=== PATIENT | male | born 1955 | race Caucasian/White ===

== ENCOUNTER 2017-02-24 07:02 | Inpatient (IN) | payer OTHER ==
[2017-02-24 07:21] VITALS: BMI 24.4
--- NOTE | 2017-02-24 07:39 | C.PDOC ---
History Of Present Illness 61 year old male with a PMHx of herniated discs and chronic back pain presents to the ED with complaints of black stool, with last episode one hour prior to arrival. Patient reports nausea, vomiting, diarrhea, and mid-abdominal pain beginning yesterday with two episodes of black stool today. Patient took one dose of Dexamethasone for pain, with no relief. Patient denies similar episodes of bloody stool in the past, fever, chills, or other complaints at this time Informatics Coordinator used: Neris Krishnan PMD: Dr. Watson Time Seen by Provider: 02/24/17 07:20 Chief Complaint (Nursing): GI Problem History Per: Patient, Informatics Coordinator (Neris Smith [id number]) History/Exam Limitations: language barrier (Hebrew speaking) Onset/Duration Of Symptoms: Days (2 days), Worse Since (1 hour RELIEF CAPTAIN) Current Symptoms Are (Timing): Still Present Number Of Bleeding Episodes: Multiple: (2) Quality Of Discomfort: "Pain" Associated Symptoms: Nausea, Vomiting, Diarrhea, Melena. denies: Lightheadedness Recent travel outside of the [place]: No Past Medical History Reviewed: Historical Data, Nursing Documentation, Vital Signs Vital Signs: Last Vital Signs Temp 97.7 F 02/24/17 15:00 Pulse 70 02/24/17 15:00 Resp 20 02/24/17 15:00 BP 127/70 02/24/17 15:00 Pulse Ox 98 02/24/17 15:00 - Medical History PMH: Back Problems (PT STATES "PROBLEM WITH MY 4TH AND 5TH VERTEBRAE") Surgical History: No Surg Hx Family History: States: Unknown Family Hx - Social History Hx Alcohol Use: No Hx Substance Use: No - Immunization History Hx Tetanus Toxoid Vaccination: No Hx Influenza Vaccination: No Hx Pneumococcal Vaccination: No Review Of Systems Constitutional: Negative for: Fever, Chills Cardiovascular: Negative for: Chest Pain, Palpitations Respiratory: Negative for: Cough, Shortness of Breath Gastrointestinal: Positive for: Nausea, Vomiting, Abdominal Pain, Diarrhea, Melena. Negative for: Rectal Pain Physical Exam - Physical Exam Appears: Non-toxic, No Acute Distress Skin: Warm, Dry, No Rash Head: Atraumatic, Normacephalic, No Tenderness Eye(s): bilateral: Normal Inspection, PERRL, EOMI Oral Mucosa: Moist Neck: Supple Chest: Symmetrical, No Deformity Cardiovascular: Rhythm Regular, No Murmur Respiratory: No Rales, No Rhonchi, No Wheezing, Other (clear to auscultation bilaterally ) Gastrointestinal/Abdominal: Soft, No Tenderness, No Distention, No Guarding, No Rebound Rectal: Heme Positive, Maroon Stool, No Hemorrhoids Extremity: Normal ROM, No Tenderness Neurological/Psych: Oriented x3, Normal Speech ED Course And Treatment - Laboratory Results Result Diagrams: 02/24/17 07:49 02/24/17 07:49 Lab Interpretation: No Acute Changes O2 Sat by Pulse Oximetry: 100 (RA) Pulse Ox Interpretation: Normal - CT Scan/US Abdomen Pelvis CT Other Rad Studies (CT/US): Read By Radiologist, Radiology Report Reviewed CT/US Interpretation: FINDINGS: LOWER THORAX: Unremarkable. LIVER: Gallstone pancreatitis renal glands renal stone. GALLBLADDER AND BILE DUCTS: Unremarkable. PANCREAS: Unremarkable. No gross lesion or ductal dilatation. SPLEEN: Unremarkable. ADRENALS: Unremarkable. No mass. KIDNEYS AND URETERS: Unremarkable. No hydronephrosis. No solid mass. VASCULATURE: Unremarkable. No aortic aneurysm. BOWEL: There is circumferential mural thickening of the transverse colon and proximal descending colon consistent with nonspecific colitis. Consider infectious etiology such as C difficile. APPENDIX: Not visualized. PERITONEUM: Unremarkable. No free fluid. No free air. LYMPH NODES : Unremarkable. No enlarged lymph nodes. BLADDER: Suboptimally distended. Mild mural thickening. No perivesical edema. Nevertheless, please correlate for possible cystitis. REPRODUCTIVE: Normal prostate. Incidental bilateral hydrocele noted. Nonspecific. BONES: No acute fracture. OTHER FINDINGS: None. IMPRESSION: Possible infectious or inflammatory colitis involving the transverse and proximal descending colon. Mild mural thickening of the bladder although bladder is suboptimally distended for evaluation. Please correlate for possible cystitis. Mild bilateral hydrocele, nonspecific. The remainder of the examination is unremarkable. Progress Note: Abdomen & Pelvis CT, blood work, and labs were ordered. Patient was given Protonix and Lactated Ringer's IV. Medical Decision Making Medical Decision Making: Impression: GI bleed Plan: * Labs * Occult stool * CT A/P * IV fluids, protonix Progress: Discussed case with attending who agreed with plan Labs reviewed normal H/H and no electrolyte imbalance. CT scan showed colitis. Will treat with IV Flagyl and Cipro. Contact PCP Dr Watson to discuss case and admit for colitis with melena. Patient remained alert and oriented, afebrile with stable vital signs. Disposition - Disposition Disposition: HOSPITALIZED Disposition Time: 11:05 Condition: STABLE - POA Present On Arrival: None - Clinical Impression Clinical Impression: Colitis, acute - PA / ORANGE PICKER / Resident Statement MD/DO has reviewed & agrees with the documentation as recorded. - Scribe Statement The provider has reviewed the documentation as recorded by the Scribe Marisa Lopez All medical record entries made by the Scribe were at my direction and personally dictated by me. I have reviewed the chart and agree that the record accurately reflects my personal performance of the history, physical exam, medical decision making, and the department course for this patient. I have also personally directed, reviewed, and agree with the discharge instructions and disposition. Decision To Admit - Pt Status Changed To: Hospital Disposition Of: Inpatient - Admit Certification Admit to Inpatient:: After my assessment, the patient will require hospitalization for at least two midnights. This is because of the severity of symptoms shown, intensity of services needed, and/or the medical risk in this patient being treated as an outpatient. - InPatient: Physician Admission Certification: I certify that this patient requires 2 or more midnights of care for the following reason:: Patient with acute colitis and dark bloody stools. Will need IV antibiotics and GI consult - . Bed Request Type: Regular Admitting Physician: Nadia Watson Patient Diagnosis: Colitis, acute
[2017-02-24] MEDS ORDERED: Lactated Ringer's 1,000 ML IV STA (07:42)
[2017-02-24] MEDS ORDERED: Lactated Ringer's 1,000 ML ONE (07:55)
[2017-02-24 07:59] LABS: BASO % 0.5 % (0.0-2.0); EOS # 0.2 K/uL (0.0-0.7); EOS % 2.6 % (0.0-4.0); HEMATOCRIT 35.6 % (35.0-51.0); LYMPH # 2.8 K/uL (1.0-4.3); LYMPH % 37.7 % (20.0-40.0); MEAN CELL VOLUME 86.1 fL (80.0-94.0); MEAN CORPUSCULAR HEMOGLOBIN 29.8 pg (27.0-31.0); MEAN CORPUSCULAR HGB CONC 34.6 g/dL (33.0-37.0); MEAN PLATELET VOLUME 7.9 fL (7.2-11.7); MONO # 0.5 K/uL (0.0-0.8); MONO % 7.1 % (0.0-10.0); NRBC % 0.1 % (0.0-2.0); RED CELL DISTRIBUTION WIDTH 13.7 % (11.5-14.5); WHITE BLOOD COUNT 7.4 K/uL (4.8-10.8)
[2017-02-24 08:13] LABS: ALB/GLOB RATIO 1.1 (1.0-2.1); ALKALINE PHOSPHATASE 36 U/L (38-126); ALT/SGPT 34 U/L (21-72); AST/SGOT 27 U/L (17-59); BILIRUBIN,TOTAL 0.5 mg/dL (0.2-1.3); BLOOD UREA NITROGEN 36 mg/dL (9-20); CARBON DIOXIDE 28 mmol/L (22-30); CHLORIDE 104 mmol/L (98-107); GFR AFRICAN-AMERICAN > 60; GLUCOSE,RANDOM 105 mg/dL (75-110); POTASSIUM 3.7 mmol/L (3.6-5.2); SODIUM 139 mmol/L (132-148); TOTAL PROTEIN 6.8 g/dL (6.3-8.3)
[2017-02-24 08:15] LABS: INR 1.1
[2017-02-24 08:19] LABS: RBC URINE 2 /hpf (0-3); URINE BACTERIA RARE (<OCC); URINE BILIRUBIN NEGATIVE (NEGATIVE); URINE BLOOD NEGATIVE (NEGATIVE); URINE COLOR Yellow (YELLOW); URINE GLUCOSE (UA) NORMAL (Normal); URINE KETONE NEGATIVE (NEGATIVE); URINE LEUKOCYTE ESTERASE NEG Leu/uL (Negative); URINE PROTEIN NEGATIVE (NEGATIVE); URINE UROBILINOGEN NORMAL mg/dL (0.2-1.0); WBC URINE 2 /hpf (0-5)
[2017-02-24] MEDS ORDERED: Iodixanol 320 MG/ML 100 ML BOTTLE IV ONE (08:38)
--- NOTE | 2017-02-24 10:56 | CT ---
PROCEDURE: CT Abdomen and Pelvis with contrast HISTORY: GI bleed COMPARISON: None. TECHNIQUE: Contrast dose: 100 mL Visipaque 320 Radiation dose: Total exam DLP = 983.24 mGy-cm. This CT exam was performed using one or more of the following dose reduction techniques: Automated exposure control, adjustment of the mA and/or kV according to patient size, and/or use of iterative reconstruction technique. FINDINGS: LOWER THORAX: Unremarkable. LIVER: Gallstone pancreatitis renal glands renal stone GALLBLADDER AND BILE DUCTS: Unremarkable. PANCREAS: Unremarkable. No gross lesion or ductal dilatation. SPLEEN: Unremarkable. ADRENALS: Unremarkable. No mass. KIDNEYS AND URETERS: Unremarkable. No hydronephrosis. No solid mass. VASCULATURE: Unremarkable. No aortic aneurysm. BOWEL: There is circumferential mural thickening of the transverse colon and proximal descending colon consistent with nonspecific colitis. Consider infectious etiology such as C difficile. APPENDIX: Not visualized PERITONEUM: Unremarkable. No free fluid. No free air. LYMPH NODES: Unremarkable. No enlarged lymph nodes. BLADDER: Suboptimally distended. Mild mural thickening. No perivesical edema. Nevertheless, please correlate for possible cystitis. REPRODUCTIVE: Normal prostate. Incidental bilateral hydrocele noted. Nonspecific. BONES: No acute fracture. OTHER FINDINGS: None. IMPRESSION: Possible infectious or inflammatory colitis involving the transverse and proximal descending colon. Mild mural thickening of the bladder although bladder is suboptimally distended for evaluation. Please correlate for possible cystitis. Mild bilateral hydrocele, nonspecific. The remainder of the examination is unremarkable.
[2017-02-24] MEDS ORDERED: Ciprofloxacin 400mg/200ml D5W 400 MG/200 ML BAG IV STA (11:06)
[2017-02-24] MEDS ORDERED: metroNIDAZOLE IV 500 mg/100 ml 500 MG/100 ML BAG IV SCH ×2 (11:15→12:00)
[2017-02-24] MEDS ORDERED: metroNIDAZOLE IV 500 mg/100 ml 500 MG/100 ML BAG ONE (11:18)
[2017-02-24] MEDS: Ciprofloxacin 400mg/200ml D5W 400 MG/200 ML BAG IVPB SCH (21:00)
[2017-02-24] MEDS: metroNIDAZOLE IV 500 mg/100 ml 500 MG/100 ML BAG IVPB SCH (21:47)
[2017-02-25] MEDS: metroNIDAZOLE IV 500 mg/100 ml 500 MG/100 ML BAG IVPB SCH ×3 (05:18→21:41)
[2017-02-25 08:36] LABS: BASO % 0.4 % (0.0-2.0); EOS # 0.2 K/uL (0.0-0.7); HEMATOCRIT 32.4 % (35.0-51.0); LYMPH % 32.9 % (20.0-40.0); MEAN CELL VOLUME 86.1 fL (80.0-94.0); MEAN CORPUSCULAR HEMOGLOBIN 29.9 pg (27.0-31.0); MEAN CORPUSCULAR HGB CONC 34.8 g/dL (33.0-37.0); MEAN PLATELET VOLUME 8.1 fL (7.2-11.7); MONO # 0.4 K/uL (0.0-0.8); MONO % 7.3 % (0.0-10.0); RED CELL DISTRIBUTION WIDTH 13.7 % (11.5-14.5); WHITE BLOOD COUNT 6.1 K/uL (4.8-10.8)
[2017-02-25 08:44] LABS: INR 1.1
[2017-02-25 09:09] LABS: ALB/GLOB RATIO 1.5 (1.0-2.1); ALKALINE PHOSPHATASE 36 U/L (38-126); ALT/SGPT 33 U/L (21-72); AMYLASE 72 U/L (30-110); AST/SGOT 18 U/L (17-59); BILIRUBIN,TOTAL 0.6 mg/dL (0.2-1.3); BLOOD UREA NITROGEN 22 mg/dL (9-20); CALCIUM 7.8 mg/dl (8.6-10.4); CARBON DIOXIDE 30 mmol/L (22-30); CHLORIDE 100 mmol/L (98-107); GFR AFRICAN-AMERICAN > 60; GLUCOSE,RANDOM 99 mg/dL (75-110); POTASSIUM 3.9 mmol/L (3.6-5.2); SODIUM 135 mmol/L (132-148); TOTAL PROTEIN 5.4 g/dL (6.3-8.3)
[2017-02-25] MEDS ORDERED: Propofol 10 mg/ml Inj (20 ML) ONE (09:14)
[2017-02-25 09:38] LABS: CARCINOEMBRYONIC ANTIGEN 1.6 ng/mL (0-3.0); PROSTATE SPECIFIC ANTIGEN 3.72 ng/mL (0.00-4.0)
[2017-02-25] MEDS: Ciprofloxacin 400mg/200ml D5W 400 MG/200 ML BAG IVPB SCH ×2 (09:52→21:00)
[2017-02-25] MEDS ORDERED: Peg-Electrolyte Oral Soln 4L (Golytely) PO ONE (13:00)
[2017-02-25] MEDS ORDERED: Bisacodyl 5mg EC Tab PO ONE (17:00)
[2017-02-25] MEDS: Sucralfate 1 gm/10 ml Oral Susp UD PO SCH (21:40)
[2017-02-26] MEDS: metroNIDAZOLE IV 500 mg/100 ml 500 MG/100 ML BAG IVPB SCH ×2 (05:09→13:56)
[2017-02-26] MEDS: Sucralfate 1 gm/10 ml Oral Susp UD PO SCH (08:32)
[2017-02-26] MEDS ORDERED: Pneumococcal 23-Valent Vaccine IM ONE (10:00)
[2017-02-26] MEDS ORDERED: Influenza Vaccine 60 mcg/0.5 mL SYR (4YR UP) IM ONE (10:00)
[2017-02-26] MEDS: Ciprofloxacin 400mg/200ml D5W 400 MG/200 ML BAG IVPB SCH (10:37)
[2017-02-26] MEDS ORDERED: Propofol 10 mg/ml Inj (20 ML) ONE (10:45)
--- NOTE | 2017-02-26 11:11 | CP.PCM.PN ---
Subjective - Date & Time of Evaluation Date of Evaluation: 02/26/17 - Subjective Subjective: gi bleeding for colonoscopy today Objective - Vital Signs/Intake and Output Vital Signs (last 24 hours): Temp Pulse Resp BP Pulse Ox 98.1 F 82 20 116/70 99 02/26/17 10:47 02/26/17 10:47 02/26/17 10:47 02/26/17 10:47 02/26/17 10:47 Intake and Output: 02/26/17 02/26/17 06:59 18:59 Intake Total 750 150 Balance 750 150 - Medications Medications: Current Medications Acetaminophen (Tylenol 325mg Tab) 650 mg PO Q6 PRN PRN Reason: Pain, moderate (4-7) Ciprofloxacin (Cipro 400mg/200ml Dsw) 400 mg in 200 mls @ 133 mls/hr IVPB Q12H [facility] Last Admin: 02/26/17 10:37 Dose: Not Given Metronidazole (Flagyl) 500 mg in 100 mls @ 100 mls/hr IVPB Q8 [facility] Last Admin: 02/26/17 05:09 Dose: 100 mls/hr Metoclopramide HCl (Reglan) 5 mg IVP Q6 [facility] Last Admin: 02/26/17 05:12 Dose: 5 mg Pantoprazole Sodium (Protonix Inj) 40 mg IVP DAILY [facility] Last Admin: 02/26/17 10:38 Dose: Not Given Sucralfate (Carafate Oral Susp) 1 gm PO ACBHS [facility] Last Admin: 02/26/17 08:32 Dose: Not Given - Labs Labs: 02/25/17 08:30 02/25/17 08:30 PT 12.7 SECONDS (9.7-12.2) H 02/25/17 08:30 INR 1.1 02/25/17 08:30 APTT 29 SECONDS (21-34) 02/25/17 08:30 - Constitutional Appears: Non-toxic - Head Exam Head Exam: NORMAL INSPECTION - Eye Exam Eye Exam: Normal appearance Pupil Exam: NORMAL ACCOMODATION - ENT Exam ENT Exam: Mucous Membranes Moist - Neck Exam Neck Exam: Full ROM - Respiratory Exam Respiratory Exam: Clear to Ausculation Bilateral - Cardiovascular Exam Cardiovascular Exam: REGULAR RHYTHM - GI/Abdominal Exam GI & Abdominal Exam: Soft - Rectal Exam Rectal Exam: NORMAL INSPECTION - Exam External exam: NORMAL EXTERNAL EXAM - Extremities Exam Extremities Exam: Normal Inspection - Neurological Exam Neurological Exam: Oriented x3 - Psychiatric Exam Psychiatric exam: Normal Affect - Skin Skin Exam: Normal Color Assessment and Plan - Assessment and Plan (Free Text) Assessment: gi bleeding peptic ulcer r/o leasins colon Plan: if stable my d/c tonight
--- NOTE | 2017-02-26 15:02 | CP.PCM.PN ---
Subjective - Date & Time of Evaluation Date of Evaluation: 02/26/17 Time of Evaluation: 15:07 - Subjective Subjective: Alert, orientedx3, denies any pain tolerates diet, no bleeding. Objective - Vital Signs/Intake and Output Vital Signs (last 24 hours): Temp Pulse Resp BP Pulse Ox 98.6 F 58 L 14 110/72 100 02/26/17 11:08 02/26/17 11:38 02/26/17 11:38 02/26/17 11:38 02/26/17 11:38 Intake and Output: 02/26/17 02/26/17 06:59 18:59 Intake Total 750 840 Balance 750 840 - Medications Medications: Current Medications Acetaminophen (Tylenol 325mg Tab) 650 mg PO Q6 PRN PRN Reason: Pain, moderate (4-7) Ciprofloxacin (Cipro 400mg/200ml Dsw) 400 mg in 200 mls @ 133 mls/hr IVPB Q12H [facility] Last Admin: 02/26/17 10:37 Dose: Not Given Metronidazole (Flagyl) 500 mg in 100 mls @ 100 mls/hr IVPB Q8 [facility] Last Admin: 02/26/17 13:56 Dose: 100 mls/hr Metoclopramide HCl (Reglan) 5 mg IVP Q6 [facility] Last Admin: 02/26/17 13:56 Dose: 5 mg Pantoprazole Sodium (Protonix Inj) 40 mg IVP DAILY [facility] Last Admin: 02/26/17 10:38 Dose: Not Given Sucralfate (Carafate Oral Susp) 1 gm PO ACBHS [facility] Last Admin: 02/26/17 08:32 Dose: Not Given - Labs Labs: 02/25/17 08:30 02/25/17 08:30 PT 12.7 SECONDS (9.7-12.2) H 02/25/17 08:30 INR 1.1 02/25/17 08:30 APTT 29 SECONDS (21-34) 02/25/17 08:30 Assessment and Plan - Assessment and Plan (Free Text) Assessment: Patient s/p colonoscopy, seen and examined. Alert and oriented, denies any pain or distress. No active bleeding. D/W DR Watson, plan to discharge home today on bentyl and rectal cream for hemorrhoids. Advised to follow up with PMD in 1 week, also to follow up with GI in 1-2 weeks.
[2017-02-26 16:26] VITALS: BP 108/61; PULSE 77; RESP 20; TEMP 97.9; O2SAT 96
--- NOTE | 2017-02-27 20:49 | CON ---
DATE: 02/24/[address] Pedraza to Dr. Nadia Watson. I was called for GI consultation by the admitting medical team. The patient is seen and fully examined on 02/24/[address] Watson. The entire chart is reviewed including but not limited to the most recent lab and radiology study results, current and the previous medication list, current and the previous medical events, allergy to medication list as well as all the available current and previous medical records. Case discussed at length with the staff in the floor and the admitting medical team. HISTORY OF PRESENT ILLNESS: This is a 61 years old male with known history of chronic lower back pain syndrome due to herniated disk, had been on nonsteroidal antiinflammatory agents for some time, was admitted to the hospital with episodes of melena, followed by rectal bleeding with crampy abdominal pain with very poor oral intake as well as persistent nausea and vomiting with diarrhea on and off. No reported chest pain, palpitation or significant shortness of breath. PAST MEDICAL HISTORY: Including mainly chronic lower back pain syndrome with lumbar spine herniated disk. FAMILY HISTORY: Noncontributory. SOCIAL HISTORY: Denied any cigarette smoking or alcohol intake recently. ALLERGY TO MEDICATION: NONE. CURRENT MEDICATIONS: Medication list was reviewed. PHYSICAL EXAMINATION: GENERAL: A 61 years old male. Somewhat anxious, complaining of abdominal pain as well as lower back pain. VITAL SIGNS: Afebrile with pulse of 72, respiratory rate 20 to 22 with blood pressure 136/72. HEENT: Showed pale dry mucoid membrane mildly, but nonicteric sclerae. LYMPH NODES: No lymphadenitis or lymphadenopathy. LUNGS: Positive breathing sounds bilaterally. HEART: Positive S1 and S2. ABDOMEN: Soft with mild tenderness. No mass or organomegaly. No rebound tenderness or guarding. RECTAL: Positive tone with traces of fresh blood and black tarry stool. EXTREMITIES: Without edema, clubbing or cyanosis. NEUROLOGIC: No reported new neurological deficits, sensory or motor. BACK: With LS spine tenderness. LABORATORY DATA: After being admitted to the hospital, initial blood workup showed normal CBC with increased BUN at 36, but normal creatinine. Abdominal and pelvic CAT scan was done, which showed possible inflammatory colitis. IMPRESSION: 1. Gastrointestinal bleeding, upper versus lower. 2. Abnormal CAT scan of the abdomen and pelvis. 3. Chronic lower back pain syndrome with herniated lumbosacral spine disk, as per history. SUGGESTION: 1. Agree with your plan. 2. Cancer marker. 3. Proton pump inhibitors IV. 4. Antireflux measures. 5. The patient for upper endoscopy to rule out upper GI tract source of blood loss. If normal, then colonoscopy after adequate preparation to be scheduled. Thank you for letting me participate in your patient's case management. Clara Pedraza MD
== END 2017-02-26 16:30 | disposition home or self-care (01) | DRG 175 ==
LOC: C.ER 07:02 → C.9E 11:07 → C.3T 13:38
PROVIDERS: ADMIT Internal Medicine; ATTEND Internal Medicine
PROC: 0DB68ZX Excision of Stomach, Via Natural or Artificial Opening Endoscopic, Diagnostic (ICD-10-PCS; principal; 2017-02-25 09:21)
PROC: 0DBM8ZX Excision of Descending Colon, Via Natural or Artificial Opening Endoscopic, Diagnostic (ICD-10-PCS; 2017-02-26)
DX: K92.2 Gastrointestinal hemorrhage, unspecified (principal); G89.29 Other chronic pain; M51.27 Other intervertebral disc displacement, lumbosacral region; M19.90 Unspecified osteoarthritis, unspecified site; Z86.73 Personal history of transient ischemic attack (TIA), and cerebral infarction without residual deficits; K26.9 Duodenal ulcer, unspecified as acute or chronic, without hemorrhage or perforation; D62 Acute posthemorrhagic anemia; K44.9 Diaphragmatic hernia without obstruction or gangrene; K64.4 Residual hemorrhoidal skin tags; K64.8 Other hemorrhoids; K58.9 Irritable bowel syndrome, unspecified

== ENCOUNTER 2018-06-24 09:47 | Emergency (ER) | payer MEDICAID, OTHER ==
[2018-06-24 09:47] VITALS: BMI 24.4
[2018-06-24 09:56] VITALS: RESP 18
--- NOTE | 2018-06-24 12:04 | C.PDOC ---
History Of Present Illness 63 y/o male presents to the ER c/o rash to the right side abdomen and back. Pt states that the rash began as pain in the abdomen and the back. Pt currently denies having pain, fever,chills, throat swelling, CP,SOB,nausea, and vomiting. Time Seen by Provider: 06/24/18 11:01 Chief Complaint (Nursing): Abnormal Skin Integrity History Per: Patient History/Exam Limitations: no limitations Onset/Duration Of Symptoms: Days Current Symptoms Are (Timing): Still Present Severity: Moderate Past Medical History Reviewed: Historical Data, Nursing Documentation, Vital Signs Vital Signs: Last Vital Signs Temp 98 F 06/24/18 09:52 Pulse 61 06/24/18 09:52 Resp 18 06/24/18 09:52 BP 147/68 06/24/18 09:52 Pulse Ox 99 06/24/18 09:52 - Medical History PMH: Back Problems (PT STATES "PROBLEM WITH MY 4TH AND 5TH VERTEBRAE") Denies: Chronic Kidney Disease Other Surgeries: Hx of surgeries - [facility] Procedures EXCISION OF DESCENDING COLON, ENDO, DIAGN (02/24/17) EXCISION OF STOMACH, ENDO, DIAGN (02/24/17) Family History: States: No Known Family Hx - Social History Hx Alcohol Use: No Hx Substance Use: No - Immunization History Hx Tetanus Toxoid Vaccination: No Hx Influenza Vaccination: No Hx Pneumococcal Vaccination: No Review Of Systems Constitutional: Negative for: Fever, Chills ENT: Negative for: Throat Pain Cardiovascular: Negative for: Chest Pain Respiratory: Negative for: Shortness of Breath Skin: Positive for: Rash Physical Exam - Physical Exam Appears: Non-toxic, No Acute Distress Skin: Warm, Dry, Rash (some patches of coalesced vesicles on erythematous base to abdomen and mid- back radiating to lateral axillary area, ) Head: Atraumatic, Normacephalic Eye(s): bilateral: Normal Inspection Nose: Normal Oral Mucosa: Moist Tongue: No Swelling Lips: No Swelling Throat: No Erythema, No Exudate Neck: Supple Chest: Symmetrical Cardiovascular: Rhythm Regular Respiratory: No Rales, No Rhonchi, No Wheezing Gastrointestinal/Abdominal: Soft Neurological/Psych: Oriented x3, Normal Speech, Normal Cognition ED Course And Treatment O2 Sat by Pulse Oximetry: 99 (RA) Pulse Ox Interpretation: Normal Medical Decision Making Medical Decision Making: Plan: --Motrin PO --Valtrex PO Disposition Counseled Patient/Family Regarding: Diagnosis, Need For Followup, Rx Given - Disposition Referrals: Nadia Watson MD [Staff Provider] - Disposition: HOME/ ROUTINE Disposition Time: 14:28 Condition: GOOD Additional Instructions: Take valtrex as prescribed until completed. Take ibuprofen for pain; take percocet for severe pain. Do not drive with this medicine. Follow up with Dr Watson in 2-3 days. Prescriptions: Ibuprofen [Motrin] 600 mg PO TID #30 tab oxyCODONE/Acetaminophen [Percocet 5/325 mg Tab] 1 ea PO Q6 #10 tab Valacyclovir HCl [Valtrex] 1 gm PO TID #30 tablet Instructions: Shingles (DC) Forms: [facility] (Frisian), General Discharge Instructions - Clinical Impression Clinical Impression: Herpes zoster - PA / METAL BUFFER / Resident Statement MD/DO has reviewed & agrees with the documentation as recorded. - Scribe Statement The provider has reviewed the documentation as recorded by the Lilia Muhammad Provider Attestation All medical record entries made by the Nasreenibabebe were at my direction and personally dictated by me. I have reviewed the chart and agree that the record accurately reflects my personal performance of the history, physical exam, medical decision making, and the department course for this patient. I have also personally directed, reviewed, and agree with the discharge instructions and disposition.
[2018-06-24 14:51] VITALS: BP 129/75; PULSE 60; TEMP 98; O2SAT 96
== END 2018-06-24 14:51 | disposition home or self-care (01) ==
LOC: C.ER 09:47
DX: B02.9 Zoster without complications (principal)